=== PATIENT | male | born 1970 | race Caucasian/White ===

== ENCOUNTER 2022-09-01 10:59 | Emergency (ER) | payer OTHER ==
[~2022-09-01] VITALS: Ht 188 cm; Wt 98.9 kg
[2022-09-01] MEDS ORDERED: ATORVASTATIN CA40 MG PO (11:21)
[2022-09-01] MEDS ORDERED: AMLODIPINE-OLM1 EAC3 PO (11:22)
[2022-09-01] MEDS ORDERED: NORFLEX100MG PO (11:45)
[2022-09-01] MEDS ORDERED: KETOROLAC TROME10 MG PO (11:45)
== END 2022-09-01 12:21 | disposition home or self-care (01) ==
LOC: ER 10:59
DX: M54.50 Low back pain, unspecified (principal)